=== PATIENT | female | born 1975 | race Caucasian/White ===

== ENCOUNTER 2016-06-03 10:56 | Emergency (ER) | payer OTHER ==
[2016-06-03 12:13] VITALS: BP 112/60
--- NOTE | 2016-06-03 13:27 | UC ---
Eye Complaint HPI - HPI Summary HPI Summary: soft rubbery lump under right eye-has been there for weeks has not improved with heat--Vision WNL - History of Current Complaint Chief Complaint: UCEye Stated Complaint: RT EYE COMPLAINT Time Seen by Provider: 06/03/16 13:22 Hx Obtained From: Patient Hx Last Menstrual Period: 6 months preg ?: Yes Onset/Duration: Gradual Onset, Lasting Weeks, Still Present Timing: Constant Severity Initially: Mild Severity Currently: Mild Location of Injury: Eye Lid (lower) Aggravating Factor(s): Nothing Alleviating Factor(s): Nothing Associated Signs And Symptoms: Positive: Negative - Allergies/Home Medications Allergies/Adverse Reactions: Allergies Allergy/AdvReac Type Severity Reaction Status Date / Time No Known Allergies Allergy Verified 06/03/16 12:12 Home Medications: Home Medications Vit W/ Ferrous Fumara [ Tablets 27-0.8 mg] 1 tab PO 06/03/16 [ History] PMH/Surg Hx/FS Hx/Imm Hx Previously Healthy: Yes Endocrine History Of: Denies: Diabetes, Thyroid Disease Cardiovascular History Of: Denies: Cardiac Disorders, Hypertension Respiratory History Of: Denies: COPD, Asthma GI/ History Of: Denies: Ulcer - Surgical History Surgical History: Yes Surgery Procedure, Year, and Place: , d&c - Family History Known Family History: Positive: None Family History: no cardio vascular issues in family lineage - Social History Occupation: Unemployed Lives: With Family Alcohol Use: None Substance Use Type: None Smoking Status (MU): Light Every Day Tobacco Smoker Type: Cigarettes Have You Smoked in the Last Year: Yes Cessation Counseling: Counseled 3+Min - 10 Min Review of Systems Constitutional: Negative Skin: Negative Eyes: Other - soft rubbery nodule below right eye ENT: Negative Respiratory: Negative Cardiovascular: Negative Gastrointestinal: Negative Genitourinary: Negative Motor: Negative Neurovascular: Negative Musculoskeletal: Negative Neurological: Negative Psychological: Negative All Other Systems Reviewed And Are Negative: Yes Physical Exam Triage Information Reviewed: Yes Appearance: Well-Appearing, No Pain Distress, Well-Nourished Vital Signs: Initial Vital Signs Temp 99.9 F 06/03/16 12:08 Pulse 94 06/03/16 12:08 Resp 18 06/03/16 12:08 BP 112/60 06/03/16 12:08 Pulse Ox 98 06/03/16 12:08 Vital Signs Reviewed: Yes Eye Exam: Normal Eyes: Positive: Conjunctiva Clear ENT Exam: Normal ENT: Positive: Normal ENT inspection, Hearing grossly normal, TMs normal. Negative: Nasal congestion, Nasal drainage, Trismus, Muffled/hoarse voice Neck exam: Normal Neck: Positive: Supple, Nontender, No Lymphadenopathy Respiratory Exam: Normal Respiratory: Positive: Chest non-tender, Lungs clear, Normal breath sounds, No respiratory distress, No accessory muscle use Cardiovascular Exam: Normal Cardiovascular: Positive: RRR, No Murmur, Pulses Normal, Brisk Capillary Refill Musculoskeletal Exam: Normal Musculoskeletal: Positive: Strength Intact, ROM Intact, No Edema Neurological Exam: Normal Neurological: Positive: Alert, Muscle Tone Normal Psychological Exam: Normal Skin Exam: Normal Eye Complaint Course/Dx - Course Course Of Treatment: warm soaks ---follow with opthomology - Differential Dx/Diagnosis Differential Diagnosis/HQI/PQRI: Conjunctivitis, Periorbital Cellulitis, Orbital Cellulitis Provider Diagnoses: Chalazion OD Discharge - Discharge Plan Condition: Stable Disposition: HOME Patient Education Materials: Chalazion (ED), Heat Pack Application (ED) Referrals: No Primary Care Phys,NOPCP [Primary Care Provider] - Rolo Dailey MD [Medical Doctor] - 1 Week
== END 2016-06-03 13:35 | disposition home or self-care (01) ==
LOC: UCEAST 10:56
DX: O26.892 Other specified pregnancy related conditions, second trimester (principal); Z3A.26 26 weeks gestation of pregnancy; H00.12 Chalazion right lower eyelid; F17.210 Nicotine dependence, cigarettes, uncomplicated
CPT/HCPCS: 99211; G0463

== ENCOUNTER 2017-04-26 09:29 | Emergency (ER) | payer OTHER ==
[2017-04-26] MEDS ORDERED: Pantoprazole IV* 40 MG IV ONE (10:11)
[2017-04-26] MEDS ORDERED: Ketorolac INJ* 30 MG/ML 1 ML VIAL IV ONE (10:11)
[2017-04-26] MEDS ORDERED: NS 0.9% 1000 ML* 1,000 ML IV ONE (10:11)
[2017-04-26] MEDS ORDERED: Metoclopramide IV* 5 MG/ML 2 ML VIAL IV ONE (10:11)
--- NOTE | 2017-04-26 10:53 | RAD ---
INDICATION: Abdominal pain since April 22, 2017 COMPARISON: CT abdomen pelvis May 12, 2010 TECHNIQUE: Supine and upright views of the abdomen were obtained. FINDINGS: The small bowel and colon appear nondistended. No free intraperitoneal air is seen. No grossly abnormal or pathologic appearing calcifications are noted. Visualized bones are within normal limits for the patient's age. IMPRESSION: Normal abdominal radiograph.
[2017-04-26 11:02] LABS: Hematocrit 43 % (35-47); Hemoglobin 14.4 g/dl (12.0-16.0); Mean Corpuscular HGB Conc 33 g/dl (31-36); Mean Corpuscular Hemoglobin 29 pg (27-31); Mean Corpuscular Volume 87 fL (80-97); Mean Platelet Volume 8 um3 (7.4-10.4); Red Blood Count 4.95 10^6/ul (4.0-5.4); Red Cell Distribution Width 13 % (10.5-15); White Blood Count 8.4 10^3/ul (3.5-10.8)
[2017-04-26 11:04] VITALS: BP 107/73
[2017-04-26 11:23] LABS: ALT 18 U/L (7-52); AST 19 U/L (13-39); Albumin 4.2 g/dL (3.2-5.2); Alkaline Phosphatase 67 U/L (34-104); Amylase 43 U/L (29-103); Anion Gap 6 mmol/L (2-11); BUN/Creatinine Ratio 18.3 (8-20); Blood Urea Nitrogen 13 mg/dL (6-24); C Reactive Protein < 1.00 mg/L (< 5.00); CO2 Carbon Dioxide 26 mmol/L (22-32); Calcium 9.4 mg/dL (8.6-10.3); Chloride 104 mmol/L (101-111); EGFR African American 117.9 (>60); EGFR Non-African American 91.6 (>60); Glucose 89 mg/dL (70-100); Lipase 18 U/L (11.0-82.0); Potassium 4.1 mmol/L (3.5-5.0); Sodium 136 mmol/L (133-145); Total Protein 7.2 g/dL (6.4-8.9)
[2017-04-26] MEDS ORDERED: Iohexol 300* (CONTRAST) 10 ML SDV IV ONE (11:44)
--- NOTE | 2017-05-08 02:00 | ED ---
Mainor García Benjamin, scribed for Leticia Mercedes MD on 04/26/17 at 1017 . Abdominal Pain/Female - HPI Summary HPI Summary: 41yo female c/o diffuse abdominal pain since last Monday. Pt reported vomiting a few times last week, but not recently. Pt also had dental extraction 2 weeks ago and was put on abx after. Last BM was last Monday. - History of Current Complaint Chief Complaint: EDAbdPain Stated Complaint: ABD PAIN/VOMITING Time Seen by Provider: 04/26/17 09:56 Hx Obtained From: Patient Hx Last Menstrual Period: 6 months preg Onset/Duration: Sudden Onset, Lasting Days - 5 days, Still Present Timing: Constant Severity Initially: Moderate Severity Currently: Moderate Pain Intensity: 7 Pain Scale Used: 0-10 Numeric Location: Diffuse Radiates: No Character: Cramping Alleviating Factor(s): Nothing Associated Signs and Symptoms: Positive: Nausea, Vomiting. Negative: Blood in Stool Allergies/Adverse Reactions: Allergies Allergy/AdvReac Type Severity Reaction Status Date / Time No Known Allergies Allergy Verified 06/03/16 12:12 PMH/Surg Hx/FS Hx/Imm Hx Endocrine/Hematology History: Denies: Hx Diabetes, Hx Thyroid Disease Cardiovascular History: Denies: Hx Hypertension Respiratory History: Denies: Hx Asthma, Hx Chronic Obstructive Pulmonary Disease (COPD) GI History: Denies: Hx Ulcer Psychiatric History: Reports: Hx Substance Abuse - heroin, suboxone, fentanyl - Surgical History Surgery Procedure, Year, and Place: , d&c Infectious Disease History: No Infectious Disease History: Denies: Hx Hepatitis, Hx Human Immunodeficiency Virus (HIV), Traveled Outside the [place] in Last 30 Days - Family History Known Family History: Negative: Cardiac Disease Family History: no cardio vascular issues in family lineage - Social History Alcohol Use: None Substance Use Type: Reports: Heroin, Synthetic Drugs Substance Use Comment - Amount & Last Used: 2 days prior to delivery (16th?) Smoking Status (MU): Heavy Every Day Tobacco Smoker Type: Cigarettes Have You Smoked in the Last Year: Yes Review of Systems Constitutional: Negative Eyes: Negative ENT: Negative Cardiovascular: Negative Respiratory: Negative Positive: Abdominal Pain, Vomiting, Nausea Genitourinary: Negative Positive: no symptoms reported Musculoskeletal: Negative Skin: Negative Neurological: Negative Psychological: Normal All Other Systems Reviewed And Are Negative: Yes Physical Exam Triage Information Reviewed: Yes Vital Signs On Initial Exam: Initial Vitals Temp Pulse Resp BP Pulse Ox 98 F 85 18 105/80 98 04/26/17 09:33 04/26/17 09:33 04/26/17 09:33 04/26/17 09:33 04/26/17 09:33 Vital Signs Reviewed: Yes - [place] Coma Scale Coma Scale Total: 15 Diagnostics - Vital Signs Vital Signs Temp Pulse Resp BP Pulse Ox 04/26/17 09:40 79 97 04/26/17 09:38 122/92 04/26/17 09:33 98 F 85 18 105/80 98 - Laboratory Lab Results: Lab Results 04/26/17 04/26/17 Range/Units 10:39 10:39 WBC 8.4 (3.5-10.8) 10^3/ul RBC 4.95 (4.0-5.4) 10^6/ul Hgb 14.4 (12.0-16.0) g/dl Hct 43 (35-47) % MCV 87 (80-97) fL MCH 29 (27-31) pg MCHC 33 (31-36) g/dl RDW 13 (10.5-15) % Plt Count 497 H (150-450) 10^3/ul MPV 8 (7.4-10.4) um3 Neut % (Auto) 73.5 (38-83) % Lymph % (Auto) 20.9 L (25-47) % [place] % (Auto) 3.5 (1-9) % Eos % (Auto) 0.9 (0-6) % Baso % (Auto) 1.2 (0-2) % Absolute Neuts (auto) 6.2 (1.5-7.7) 10^3/ul Absolute Lymphs (auto) 1.8 (1.0-4.8) 10^3/ul Absolute Monos (auto) 0.3 (0-0.8) 10^3/ul Absolute Eos (auto) 0.1 (0-0.6) 10^3/ul Absolute Basos (auto) 0.1 (0-0.2) 10^3/ul Absolute Nucleated RBC 0.01 10^3/ul Nucleated RBC % 0.1 Sodium 136 (133-145) mmol/L Potassium 4.1 (3.5-5.0) mmol/L Chloride 104 (101-111) mmol/L Carbon Dioxide 26 (22-32) mmol/L Anion Gap 6 (2-11) mmol/L BUN 13 (6-24) mg/dL Creatinine 0.71 (0.51-0.95) mg/dL Est GFR ( Amer) 117.9 (>60) Est GFR (Non-Af Amer) 91.6 (>60) BUN/Creatinine Ratio 18.3 (8-20) Glucose 89 (70-100) mg/dL Calcium 9.4 (8.6-10.3) mg/dL Total Bilirubin 0.40 (0.2-1.0) mg/dL AST 19 (13-39) U/L ALT 18 (7-52) U/L Alkaline Phosphatase 67 (34-104) U/L C-Reactive Protein < 1.00 (< 5.00) mg/L Total Protein 7.2 (6.4-8.9) g/dL Albumin 4.2 (3.2-5.2) g/dL Globulin 3.0 (2-4) g/dL Albumin/Globulin Ratio 1.4 (1-3) Amylase 43 (29-103) U/L Lipase 18 (11.0-82.0) U/L Beta HCG, Quant < 0.60 mIU/mL Result Diagrams: 04/26/17 10:39 04/26/17 10:39 Lab Statement: Any lab studies that have been ordered have been reviewed, and results considered in the medical decision making process. - Radiology Abdominal XR Xray Interpretation: No Acute Changes Radiology Interpretation Completed By: Radiologist - ED physician has reviewed this radiology report and agrees. Abdominal Pain Fem Course/Dx - Course Course Of Treatment: 41yo female c/o diffuse abdominal pain since last Monday. Pt reported vomiting a few times last week, but not recently. Pt also had dental extraction 2 weeks ago and was put on abx after. Last BM was last Monday. Pt eloped. Around 1202 hour when nurse went into the room, pt pulled out her IV, leaving it in the sink and eloped without consulting any nursing or medical staff. - Diagnoses Provider Diagnoses: Abdominal pain Discharge - Discharge Plan Condition: Fair Disposition: OTHER Discharge Disposition Comment: ELOPED Referrals: No Primary Care Phys,NOPCP [Primary Care Provider] - Additional Instructions: RETURN TO EMERGENCY DEPARTMENT FOR ANY NEW OR WORSENING SYMPTOMS The documentation as recorded by the Mainor schwartz Benjamin accurately reflects the service I personally performed and the decisions made by me, Leticia Mercedes MD.
== END 2017-04-26 12:10 ==
LOC: ED 09:29
DX: R10.9 Unspecified abdominal pain (principal); R11.2 Nausea with vomiting, unspecified
CPT/HCPCS: 36415; 74020; 80053; 82150; 83690; 84702; 85025; 86140; 96374; 96375; 99283; J1885; J2765